=== PATIENT | female | born 1945 | race Caucasian/White ===

== ENCOUNTER 2021-06-29 13:31 | Emergency (ER) | payer MEDICARE, OTHER ==
[~2021-06-29] VITALS: Ht 160 cm; Wt 71.2 kg
--- NOTE | 2021-06-29 13:52 | ED General ---
General Chief Complaint: COVID19 Suspect/Confirmed Stated Complaint: COVID + Nursing Triage Note: PT TO RM 5 BY WHEELCHAIR WITH COMPLAINT OF LOW ENERGY AND FEVER. STATES SYMPTOMS STARTED MONDAY AND SHE TESTED POSITIVE FOR COVID ON MONDAY. Source of Information: Patient Exam Limitations: No Limitations History of Present Illness Date Seen by Provider: Jun 29, 2021 Time Seen by Provider: 13:49 Initial Comments To ER with reports of day 7 of Covid illness. Symptoms started on Monday of last week, 06/22/2014. Minimal fevers up to about 100.5. No shortness of breath. She does have a nonproductive cough. No nausea no headache. She does have extreme fatigue. 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 She is on dexamethasone 2 mg daily, ivermectin 3 mg, albuterol, Zithromax and fenofibrate cocktail on 06/24/2021 for Covid. Timing/Duration: 1 Week Severity: Moderate Modifying Factors: improves with Rest Associated Systoms: No Chest Pain; Cough; No Diaphoresis; Fever/Chills; No Headaches; Malaise; No Nausea/Vomiting; Rash; No Seizure, No Shortness of Air, No Syncope; Weakness Allergies and Home Medications Allergies Coded Allergies: Penicillins (Verified Allergy, Unknown, 06/29/21) Sulfa (Sulfonamide Antibiotics) (Verified Allergy, Unknown, 06/29/21) Patient Home Medication List Home Medication List Reviewed: Yes Review of Systems Review of Systems Constitutional: see HPI EENTM: see HPI Respiratory: no symptoms reported Cardiovascular: no symptoms reported Genitourinary: no symptoms reported Musculoskeletal: no symptoms reported Skin: no symptoms reported Psychiatric/Neurological: No Symptoms Reported Hematologic/Lymphatic: No Symptoms Reported Immunological/Allergic: no symptoms reported Past Btzymqq-Hjvids-Uskyae Hx Patient Social History Tobacco Use?: No Use of E-Cig and/or Vaping dev: No Substance use?: No Alcohol Use?: No Pt feels they are or have been: No Physical Exam Vital Signs Vital Signs - First Documented 06/29/21 13:31 Temp 37.3 Pulse 86 Resp 19 B/P (MAP) 110/88 (95) Pulse Ox 96 O2 Delivery Room Air Capillary Refill : Less Than 3 Seconds Height, Weight, BMI Height: '" Weight: lbs. oz. kg; 27.00 BMI Method: General Appearance: No Apparent Distress, WD/WN, Other (Oxygen saturation 94 to 96% on room air without accessory muscle use or tachycardia) Eyes: Bilateral Eye Normal Inspection, Bilateral Eye PERRL, Bilateral Eye EOMI Neck: Full Range of Motion, Normal Inspection Respiratory: No Accessory Muscle Use, No Respiratory Distress Gastrointestinal: Normal Bowel Sounds, Non Tender, Soft Neurologic/Psychiatric: Alert, Oriented x3 Skin: Normal Color, Warm/Dry Progress/Results/Core Measures Suspected Sepsis SIRS Temperature: Pulse: 86 Respiratory Rate: 19 Laboratory Tests 06/29/21 13:42: White Blood Count 4.2L Blood Pressure 110 /88 Mean: 95 Laboratory Tests 06/29/21 13:42: Creatinine 0.75, Platelet Count 189, Total Bilirubin 0.4 Results/Orders Lab Results Laboratory Tests Test 06/29/21 13:42 Range/Units White Blood Count 4.2 L 4.3-11.0 10^3/uL Red Blood Count 4.57 3.80-5.11 10^6/uL Hemoglobin 13.5 11.5-16.0 g/dL Hematocrit 40 35-52 % Mean Corpuscular Volume 87 80-99 fL Mean Corpuscular Hemoglobin 30 25-34 pg Mean Corpuscular Hemoglobin Concent 34 32-36 g/dL Red Cell Distribution Width 12.1 10.0-14.5 % Platelet Count 189 130-400 10^3/uL Mean Platelet Volume 9.8 9.0-12.2 fL Immature Granulocyte % (Auto) 1 % Neutrophils (%) (Auto) 83 H 42-75 % Lymphocytes (%) (Auto) 9 L 12-44 % Monocytes (%) (Auto) 7 0-12 % Eosinophils (%) (Auto) 0 0-10 % Basophils (%) (Auto) 0 0-10 % Neutrophils # (Auto) 3.5 1.8-7.8 10^3/uL Lymphocytes # (Auto) 0.4 L 1.0-4.0 10^3/uL Monocytes # (Auto) 0.3 0.0-1.0 10^3/uL Eosinophils # (Auto) 0.0 0.0-0.3 10^3/uL Basophils # (Auto) 0.0 0.0-0.1 10^3/uL Immature Granulocyte # (Auto) 0.0 0.0-0.1 10^3/uL D-Dimer 0.49 0.00-0.49 UG/ML Sodium Level 126 L 135-145 MMOL/L Potassium Level 3.5 L 3.6-5.0 MMOL/L Chloride Level 92 L 98-107 MMOL/L Carbon Dioxide Level 24 21-32 MMOL/L Anion Gap 10 5-14 MMOL/L Blood Urea Nitrogen 9 7-18 MG/DL Creatinine 0.75 0.60-1.30 MG/DL Estimat Glomerular Filtration Rate 76 BUN/Creatinine Ratio 12 Glucose Level 109 H 70-105 MG/DL Calcium Level 8.6 8.5-10.1 MG/DL Corrected Calcium 8.8 8.5-10.1 MG/DL Total Bilirubin 0.4 0.1-1.0 MG/DL Aspartate Amino Transf (AST/SGOT) 34 5-34 U/L Alanine Aminotransferase (ALT/SGPT) 22 0-55 U/L Alkaline Phosphatase 55 40-136 U/L C-Reactive Protein High Sensitivity 0.86 H 0.00-0.50 MG/DL Total Protein 6.5 6.4-8.2 GM/DL Albumin 3.8 3.2-4.5 GM/DL Procalcitonin 0.02 <0.10 NG/ML My Orders Orders - NOAH YEAGER VEHICLE CHECK IN CLERK Cbc With Automated Diff (06/29/21 13:37) Comprehensive Metabolic Panel (06/29/21 13:37) Ua Culture If Indicated (06/29/21 13:37) Fibrin Degradation Products (06/29/21 13:37) Hs C Reactive Protein (06/29/21 13:37) Chest 1 View, Ap/Pa Only (06/29/21 13:37) Ed Iv/Invasive Line Start (06/29/21 13:37) Procalcitonin (Pct) (06/29/21 13:47) Epinephrine 1 Mg Injection (Adrenalin I (06/29/21 14:15) Diphenhydramine Injection (Benadryl Inje (06/29/21 14:15) Casirivimab/Imdevimab (Regen-Cov 1200 Mg (06/29/21 14:15) Acetaminophen Tablet (Tylenol Tablet) (06/29/21 14:15) Ondansetron Injection (Zofran Injectio (06/29/21 14:15) Ns Iv 500 Ml (Sodium Chloride 0.9%) (06/29/21 14:45) Medications Given in ED Current Medications Medications Dose Ordered Sig/Deya Route Start Time Stop Time Status Last Admin Dose Admin Casirivimab/ Imdevimab 1200 mg/ Sodium Chloride 250 ml @ 310 mls/hr ONCE ONCE IV 06/29/21 14:15 06/29/21 15:03 DC 06/29/21 14:32 310 MLS/HR Vital Signs/I&O 06/29/21 06/29/21 13:31 13:31 Temp 37.3 Pulse 86 Resp 19 B/P (MAP) 110/88 (95) Pulse Ox 96 O2 Delivery Room Air Room Air Capillary Refill : Less Than 3 Seconds Blood Pressure Mean: 95 Departure Communication (Admissions) Family Conversation NAME: TASHI CHASE MED REC#: [id number] PT STATUS: REG ER : 1945 PHYSICIAN: NOAH YEAGER APRN ADMIT DATE: 06/29/21/ER Draft Date of Exam:06/29/21 CHEST 1 VIEW, AP/PA ONLY EXAMINATION: Chest 1 view HISTORY: Covid-19. COMPARISON: None available. FINDINGS: The lungs are clear without edema or pneumonia. No pleural effusion or pneumothorax. Heart size is normal. IMPRESSION: 1. Clear lungs. Dictated on workstation # [id number] Dict: 06/29/21 1430 Trans: 06/29/21 1434 [id number] Interpreted by: RUMA BLACK MD Electronically signed by: [id number]-discussed with her the emergency use authorization of Regeneron monoclonal antibody and the alternatives to use. She would like to proceed with getting it. Impression Primary Impression: COVID-19 Disposition: 01 HOME, SELF-CARE Condition: Stable Departure-Patient Inst. Decision time for Depature: 15:11 Patient Instructions: COVID-19 ED NOAH YEAGER APRN Jun 29, 2021 13:52
[2021-06-29 13:55] LABS: BASOPHILS % (AUTO) 0 % (0-10); EOSINOPHILS % (AUTO) 0 % (0-10); HEMATOCRIT 40 % (35-52); HEMOGLOBIN 13.5 g/dL (11.5-16.0); LYMPHOCYTES # (AUTO) 0.4 10^3/uL (1.0-4.0); LYMPHOCYTES % (AUTO) 9 % (12-44); MEAN CORPUSCULAR HEMOGLOBIN 30 pg (25-34); MEAN CORPUSCULAR HGB CONC 34 g/dL (32-36); MEAN CORPUSCULAR VOLUME 87 fL (80-99); MEAN PLATELET VOLUME 9.8 fL (9.0-12.2); MONOCYTES # (AUTO) 0.3 10^3/uL (0.0-1.0); MONOCYTES % (AUTO) 7 % (0-12); NEUTROPHILS # (AUTO) 3.5 10^3/uL (1.8-7.8); NEUTROPHILS % (AUTO) 83 % (42-75); PLATELET COUNT 189 10^3/uL (130-400); WHITE BLOOD COUNT 4.2 10^3/uL (4.3-11.0)
[2021-06-29 14:02] LABS: ALBUMIN 3.8 GM/DL (3.2-4.5); POTASSIUM 3.5 MMOL/L (3.6-5.0)
[2021-06-29 14:04] LABS: CALCIUM 8.6 MG/DL (8.5-10.1)
[2021-06-29 14:05] LABS: TOTAL PROTEIN 6.5 GM/DL (6.4-8.2)
[2021-06-29 14:07] LABS: BILIRUBIN,TOTAL 0.4 MG/DL (0.1-1.0)
[2021-06-29 14:08] LABS: CREATININE SERUM 0.75 MG/DL (0.60-1.30)
[2021-06-29] MEDS ORDERED: ACETAMINOPHEN 500 MG TAB (TYLENOL) PO PRN (14:15)
[2021-06-29] MEDS ORDERED: CASIRIVIMAB/IMDEVIMAB 1,200 MG in NS (IVPB) 250 ML IV ONE (14:15)
[2021-06-29] MEDS ORDERED: ONDANSETRON 4 MG/2 ML (SDV) Z0FRAN IV PRN (14:15)
[2021-06-29] MEDS ORDERED: EPINEPHrine INJECTION 1 MG/ML AMP IM PRN (14:15)
[2021-06-29] MEDS ORDERED: diphenhydrAMINE 50 MG/ML INJ (BENADRYL) IV PRN (14:15)
--- NOTE | 2021-06-29 14:34 | Diagnostic Imaging Report ---
EXAMINATION: Chest 1 view HISTORY: Covid-19. COMPARISON: None available. FINDINGS: The lungs are clear without edema or pneumonia. No pleural effusion or pneumothorax. Heart size is normal. IMPRESSION: 1. Clear lungs. Dictated by: Dictated on workstation # [id number]
[2021-06-29] MEDS ORDERED: NS IV 500 ML 500 ML IV SCH (14:45)
[2021-06-29 16:22] VITALS: BP 103/61
== END 2021-06-29 16:30 | disposition home or self-care (01) ==
LOC: EDUNIT# 13:31 → ER 13:33
DX: U07.1 COVID-19 (principal)
CPT/HCPCS: 36415; 71045; 80053; 84145; 85025; 85379; 86141